=== PATIENT | female | born 1965 | race Caucasian/White ===

== ENCOUNTER 2020-09-17 20:36 | Inpatient (IN) | payer MEDICARE, MEDICAID ==
[~2020-09-17] VITALS: Ht 149.9 cm; Wt 37.4 kg
[2020-09-17 20:37] VITALS: BP 166/61
[2020-09-17] MEDS ORDERED: FUROSEMIDE 20 M20 MG PO (20:47)
[2020-09-17] MEDS ORDERED: NORCO5 PO (20:48)
[2020-09-17] MEDS ORDERED: PREDNISONE 5 MG5 MG PO (20:48)
[2020-09-17] MEDS ORDERED: CALCITRIOL0.5 MCG PO (20:48)
[2020-09-17] MEDS ORDERED: GLIMEPIRIDE4 MG PO (20:49)
[2020-09-17] MEDS ORDERED: SODIUM BICARBO650 M3 PO (20:49)
[2020-09-17] MEDS ORDERED: JANUVIA25 MG PO (20:50)
[2020-09-17] MEDS ORDERED: ROSUVASTATIN CA20 MG PO (20:53)
[2020-09-17] MEDS ORDERED: FAMOTIDINE 20 M20 MG PO (20:53)
[2020-09-17] MEDS ORDERED: REQUIP 1 MG TABL1 M1 PO (20:54)
[2020-09-17] MEDS ORDERED: DRIZALMA SPRINK30 MG PO (20:54)
[2020-09-17] MEDS ORDERED: FLEXERIL PO (20:54)
[2020-09-17] MEDS ORDERED: HYDROXYZINE HCL25 M2 PO (20:55)
[2020-09-17] MEDS ORDERED: HYDRALAZINE 2525 MG PO (20:55)
[2020-09-17] MEDS ORDERED: CARVEDILOL12.5 MG PO (20:56)
[2020-09-17] MEDS ORDERED: CATAPRES0.2 MG PO (20:56)
[2020-09-17 21:00] VITALS: BP 152/94
[2020-09-17 21:05] LABS: ABSOLUTE BASOPHILS 0.1 thou/uL (0.0-0.2); ABSOLUTE EOSINOPHILS 0.1 thou/uL (0.0-0.7); ABSOLUTE LYMPHOCYTES 0.6 thou/uL (0.8-5.3); ABSOLUTE MONOCYTES 0.5 thou/uL (0.0-1.2); ABSOLUTE NEUTROPHILS 5.5 thou/uL (1.6-8.1); BASOPHILS 0.8 %; EOSINOPHILS 1.3 %; HEMATOCRIT 22.1 % (37.0-47.0); HEMOGLOBIN 7.2 gm/dL (12.0-15.0); LYMPHOCYTES 8.8 %; MCH 29.2 pg (26.0-34.0); MCHC 32.5 g/dL (28.0-37.0); MCV 89.9 fL (80.0-100.0); MONOCYTES 7.1 %; MPV 9.5 fl. (7.2-11.1); NUCLEATED RBCS 0 /100WBC; PLATELET COUNT* 143 thou/uL (150-400); RBC 2.46 mil/uL (4.20-5.00); RDW-CV 16.2 % (10.5-14.5); WBC 6.7 thou/uL (4.0-11.0)
[2020-09-17 21:14] LABS: ANION GAP 10 mmol/L (7-16); BUN 31 mg/dL (7-18); CALCIUM 8.9 mg/dL (8.5-10.1); CHLORIDE 100 mmol/L (98-107); CO2 29 mmol/L (21-32); CREATININE 6.5 mg/dL (0.6-1.3); GLUCOSE 217 mg/dL (70-99); INR 0.9; POTASSIUM 3.3 mmol/L (3.5-5.1); PROTIME 10.1 Seconds (9.20-11.50); SODIUM 139 mmol/L (136-145)
[2020-09-17 21:24] LABS: ALBUMIN 3.1 g/dL (3.4-5.0); ALKALINE PHOSPHATASE 65 U/L (46-116); LIPASE 244 U/L (73-393); MAGNESIUM 2.2 mg/dL (1.8-2.4); SGOT 19 U/L (15-37); SGPT 18 U/L (30-65); TOTAL BILIRUBIN 0.5 mg/dL (<0.1-1.0); TOTAL PROTEIN 6.7 g/dL (6.4-8.2)
[2020-09-17 21:25] LABS: NT-PRO BRAIN NAT PEPTIDE > 35000 pg/mL (<300)
[2020-09-17 22:41] VITALS: BP 185/76
[2020-09-18] VITALS (8 sets, daily range): BP systolic 136–242; BP diastolic 67–163
--- NOTE | 2020-09-18 04:30 | NUR ---
PT CALLING OUT TO [facility] EVERY FEW MINUTES FOR PAIN MEDS, THE DR HAS BEEN PAGED AND WE HAVE NOT REC'D A CALL BACK YET. WENT TO BEDSIDE AND TRIED TO COMFORT PT BY HELPING HER SLOW HER BREATHING, REPOSITIONING HER AND TALKING TO HER IN SOFT SLOW MANNER TO RELAX HER. SHE IS RESTLESS AND ROCKING HER HEAD SIDE TO SIDE. WCTM
--- NOTE | 2020-09-18 04:56 | NUR ---
PT HAS BEEN ANXIOUS ALL NIGHT, SHE HAS CALLED OUT FREQUENTLY REQUESTING MORE PAIN MEDS. SHE HAD ATIVAN WHICH CALMED HER FOR A SHORT TIME, SHE THEN REPORTED PAIN IN LT CHEST 8/10 AND I CALLED THE PHYSICAIN TO OBTAIN PAIN MEDS AND ADMINISTERED HER MORPHINE PER ORDER. SHE THEN CALLED ME TO THE BEDSIDE A FEW MINUTES LATER ASKING FOR THE NAME OF THE PAIN MED. WHEN I TOLD HER IT WAS MORPHINE SHE GOT ANGRY INSISTING SHE DID NOT RECEIVE MORPHINE. I HAD THE BOTTLE FOR PURPOSE OF WASTING AND SHOWED HER THE BOTTLE. SHE WAS STILL ANGRY. 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
--- NOTE | 2020-09-18 06:21 | NUR ---
PT AO X4 FROM HOME WITH , SHE IS T// DIALYSIS PT MISSING YESTERDAY, SHE CAME TO HOSPITAL WITH SOA,ANXIETY. PT HAS BEEN UP ALL SHIFT REQUESTING PAIN MEDS FOR CHEST PAIN IN LT SIDE -11/24. PT HAD ATIVAN FOR ANXIETY AND THIS AM THIS RN GOT AN ORDER FOR PAIN. MORPHINE ADMINISTERED FOR PAIN HELPED SOME BUT PT STATES SHE KNOWS WHAT MORPHINE FEELS LIKE AND WHAT SHE GOT WAS NOT MORPHINE. SAT THIS AM WAS LOWER, 87-91 ON 3L. PT LUNGS ARE COURSE AND WHEEZY BUT COUGH IS NON PRODUCTIVE AT THIS TIME.
--- NOTE | 2020-09-18 09:57 | EKG ---
[place] [address] ELECTROCARDIOGRAM REPORT Name: JENNIFERHAILEY Room: [address] M.R.#: [id number] Admission: 09/17/20 Attend Phys: Ronak Ramirez Discharge: Date of : 69 Date of Service: 09/17/202037 Report #: [id number] THIS REPORT FOR: //name// [facility] ED Test Date: 2020-09-17 Test Time: 20:38:30 Pat Name: HAILEY RODRIGUEZ Department: Room: [facility] Gender: F Psychology Intern: : 1965 Requested By: Alicia Costa Order Number: [id number] MD: Terrell Hunt Measurements Intervals [place] Rate: 97 P: 27 DE: 158 QRS: 27 QRSD: 83 T: 193 QT: 412 QTc: 524 Interpretive Statements Sinus rhythm Probable left atrial enlargement Probable LVH with secondary repol abnrm Prolonged QT interval No previous ECG available for comparison Electronically Signed On 09-18-2020 9:57:22 CDT by Terrell Hunt [email or web address] <ELECTRONICALLY SIGNED> By: Terrell Hunt MD, [facility] 09/18/20 0957 37 37 Terrell Hunt MD, [facility] /EPI
--- NOTE | 2020-09-18 15:44 | NUR ---
cm spk with pt who stated she lives at home. she uses a cane. does not have home o2. she goes to outpatient dialysis on and sat, she stated she started "about a month ago." pt stated the dialysis facility is in [place], but she doesnt know the name. pt seemingly in distress and not focused on the conversation. cm spk w/pt rn, bernardo, to inform him that pt looked as if she was in distress. bernardo acknowledged cm. bernardo informed cm that pt spouse stated pt goes to dialysis in [place] but he does not know what facility, as the patient either drives herself or gets picked up. cm to f/u with pt at later date when presents with less anxiety.
--- NOTE | 2020-09-18 17:20 | 2DMMODE ---
[place] [address] 2 D/M-MODE ECHOCARDIOGRAM Name: HAILEY RODRIGUEZ Room: [address] IN .Sandeep.#: [id number] Admission: 09/18/20 Attend Phys: Ronak Ramirez Discharge: Date of : 69 Date of Service: 09/18/20 1720 Report #: [id number] THIS REPORT FOR: cc: Ernst Olson,Terrell Garcia MD [facility] ~ APPROVED REPORT Study performed: 09/18/2020 15:58:08 EXAM: Comprehensive 2D, Doppler, and color-flow Echocardiogram Patient Location: In-Patient Room #: 218 Status: routine BSA: 1.26 HR: 107 bpm BP: 191/127 mmHg Rhythm: NSR Other Information Study Quality: Good Indications Chest Pain 2D Dimensions IVSd: 9.41 (7-11mm) LVOT Diam: 17.89 (18-24mm) LVDd: 46.94 mm PWd: 11.40 (7-11mm) Ascending Ao: 36.17 (22-36mm) LVDs: 33.54 (25-40mm) Aortic Root: 26.33 mm Volumes Left Atrial Volume (Systole) LA ESV Index: 78.80 mL/m2 Aortic Valve AoV Peak Vitaly.: 2.12 m/s AO Peak Gr.: 17.95 mmHg LVOT Max P.57 mmHg AO Mean Gr.: 9.10 mmHg LVOT Mean P.47 mmHg LVOT Max V: 1.07 m/s AO V2 VTI: 28.49 cm LVOT Mean V: 0.73 m/s ARIE (VTI): 1.47 cm2 LVOT V1 VTI: 16.63 cm AI Evangeline: 7.04 m/s2 [place] [address] 2 D/M-MODE ECHOCARDIOGRAM Name: HAILEY RODRIGUEZ Room: [address] IN .R.#: [id number] Admission: 09/18/20 Attend Phys: Ronak Ramirez Discharge: Date of : 69 Date of Service: 09/18/20 1720 Report #: [id number] AI PHT: 220.98 ms Mitral Valve MV Mean Gr.: 7.15 mmHg E/A Ratio: 0.84 MV Decel. Time: 129.84 ms MV E Max Vitaly.: 1.45 m/s MV PHT: 37.65 ms MVA (PHT): 5.84 cm2 TDI E/Lateral E': 24.17 Lateral E' Vitaly.: 0.06 m/s Pulmonary Valve PV Peak Vitaly.: 1.30 m/s PV Peak Gr.: 6.71 mmHg Tricuspid Valve RAP Estimate: 5.00 mmHg TR Peak Gr.: 42.07 mmHg RVSP: 47.00 mmHg PA Pressure: 47.00 mmHg Left Ventricle Left ventricle is mildly dilated. There is global hypokinesis of the left ventricle. Mild concentric left ventricular hypertrophy. Left ventricular systolic function is severely decreased. LVEF is 25-30%. Grade I - abnormal relaxation pattern. Right Ventricle The right ventricle is normal size. The right ventricular systolic function is normal. Atria Left atrium is severely dilated. The right atrium size is normal. Aortic Valve Aortic valve is calcified. Moderate aortic regurgitation. Mild aortic stenosis. Mitral Valve Moderate mitral annular calcification. The mitral valve is normal in structure. Mild mitral regurgitation. No evidence of mitral valve stenosis. Tricuspid Valve The tricuspid valve is normal in structure[place] [address] 2 D/M-MODE ECHOCARDIOGRAM Name: HAILEY RODRIGUEZ Room: [address] IN [facility]#: [id number] Admission: 09/18/20 Attend Phys: Ronak Ramirez Discharge: Date of : 69 Date of Service: 09/18/20 1720 Report #: [id number] regurgitation. estimated pa pressure 50 mm Hg Pulmonic Valve The pulmonary valve is normal in structure. Mild pulmonic regurgitation. Great Vessels The aortic root is normal in size. IVC is normal in size and collapses >50% with inspiration. Pericardium There is no pericardial effusion. Moderate left pleural effusion. <Conclusion> Mild concentric left ventricular hypertrophy. LVEF is 25-30%. Left atrium is severely dilated. Mild aortic stenosis. Moderate aortic regurgitation. Mild mitral regurgitation. Mild tricuspid regurgitation. estimated pa pressure 50 mm Hg <ELECTRONICALLY SIGNED> By: Terrell Hunt MD, FACC 09/18/201719 19 19 Terrell Hunt MD, FACC /INF
--- NOTE | 2020-09-18 18:12 | NUR ---
Pt very SOA this am and very anxious. Dialysis pt, and missed scheduled treatment yesterday (e, , Sat). BP also very high: 200s-230s/120s-140s. Received order for lorazepam dose. Pt also started on BIPAP, which pt tolerated well. Dialysis treatment ordered and completed this afternoon. Also received 1 unit PRBCs during dialysis for Hgb 7.2. Total of 3.5 L removed. Pt taken off BIPAP and placed on 5L per NC. Pt noticeably calm and with normal appearing resps. BP remains elevated at 190/121. Also spiked a fever of 101 followoing dialysis. Orders received for increased frequency of clonidine (BID to TID), and BC X2. Pt's states pt has not been feeling well for about 1 month, and is concerned that "she may be on too many medications." Pt states she has home O2 because she wears oxygen to sleep. Will continue to monitor.
[2020-09-19] VITALS: BP 162/104
[2020-09-19 04:41] VITALS: BP 151/98
--- NOTE | 2020-09-19 04:58 | NUR ---
PT A&OX4, 4L O2, SR-ST WITH ST DEPRESSION AND PVC'S ON TELE MONITOR. IV SALINE LOCKED. FEBRILE 100.0-100.2, TYLENOL ADMINISTERED ODERED. PT HAS BEEN SLEEPING WELL. ASSESSMENTS AND HOURLY ROUNINDS COMPLETE, WILL CONTINUE TO MONITOR.
[2020-09-19 05:34] LABS: HEMATOCRIT 26.1 % (37.0-47.0); HEMOGLOBIN 8.7 gm/dL (12.0-15.0); MCH 29.5 pg (26.0-34.0); MCHC 33.2 g/dL (28.0-37.0); MCV 88.8 fL (80.0-100.0); MPV 9.2 fl. (7.2-11.1); RBC 2.94 mil/uL (4.20-5.00); RDW-CV 15.3 % (10.5-14.5)
[2020-09-19 05:38] LABS: CALCIUM 8.2 mg/dL (8.5-10.1); CREATININE 4.2 mg/dL (0.6-1.3); POTASSIUM 3.3 mmol/L (3.5-5.1)
[2020-09-19 08:00] VITALS: BP 99/36
[2020-09-19 13:51] VITALS: BP 145/82
--- NOTE | 2020-09-19 19:21 | NUR ---
PT. AOX4, VSS, PAIN AND ANXIETY UNDER CONTROL, HD TODAY, DID NOT TOLERATE WELL, CALL LIGHT AND PERSONAL BELONGINGS PLACED WITHIN REACH. SPOKE TO DAUGHTER BALDOMERO AND UPDATED ON PROGRESS AND TREATMENT. BP OBTAINED ACCURATELY BY MANUAL CUFF. PT. IN BED, RESTING WITH EVES CLOSED AT THIS TIME.
[2020-09-19 22:02] VITALS: BP 76/42
[2020-09-20] VITALS: BP 105/49
--- NOTE | 2020-09-20 00:54 | NUR ---
VERY DIFFICULT TO GET ACCURATE READING OF PATIENT'S BLOOD PRESSURE, MULTIPLE LOCATIONS ATTEMPTED BY MULTIPLE RN'S. UNABLE TO GET GOOD MANUAL BP READING. MACHINE BLOOD PRESSURE RESULT 79/28 AFTER MULTIPLE ATTEMPTS. YOU CALL SENT TO DR. YOUSSEF AT 2205, MESSAGE RECEIVED AT 2217, NO REPONSE BY 2224. DR. REDDING CONTACTED AT 2227; RESPONSE GIVEN THAT DUE TO PATIENT BEING AWAKE AND TALKING NO NEW ORDERS GIVEN. RETURN CALL RECIEVED FROM DR. YOUSSEF AT 2240. DR. YOUSSEF NOTIFIED OF CONTACT AND RESPONSE BY DR. REDDING. ALSO, REVIEWED PT'S BLOOD GLUCOSE LEVEL OF [address] YOUSSEF; NO NEW ORDERS GIVEN, INSTRUCTED TO ADMINISTER INSULIN ORDERED.
[2020-09-20 04:00] VITALS: BP 121/55
[2020-09-20 06:08] LABS: HEMATOCRIT 29.6 % (37.0-47.0); HEMOGLOBIN 9.9 gm/dL (12.0-15.0); MCH 29.6 pg (26.0-34.0); MCHC 33.4 g/dL (28.0-37.0); MCV 88.6 fL (80.0-100.0); MPV 9.1 fl. (7.2-11.1); RBC 3.35 mil/uL (4.20-5.00); RDW-CV 15.8 % (10.5-14.5); WBC 7.5 thou/uL (4.0-11.0)
[2020-09-20 06:12] LABS: CALCIUM 8.4 mg/dL (8.5-10.1); CREATININE 3.9 mg/dL (0.6-1.3); POTASSIUM 3.7 mmol/L (3.5-5.1)
[2020-09-20 08:00] VITALS: BP 136/94
[2020-09-20 13:05] VITALS: BP 136/76
[2020-09-20 17:13] VITALS: BP 136/76
--- NOTE | 2020-09-20 19:34 | NUR ---
PT. AOX4, VSS, CALL LIGHT AND PERSONAL BELONGINGS PLACED WITHIN REACH. PT. DCED, PACKET INSTRUCTED ON MEDS, HD SCHEDULE POST DC, ACITIVITY AND DIET. PT. LEFT BY WHEELCHAIR WITH FAMILY MEMBER, IN STABLE CONDITION AT TIME OF DC.
--- NOTE | 2020-09-21 13:47 | EKG ---
[place] [address] ELECTROCARDIOGRAM REPORT Name: RODRIGUEZHAILEY Room: [address] [place] M.R.#: [id number] Admission: 09/18/20 Attend Phys: Ronak Ramirez Discharge: 09/20/20 Date of : 69 Date of Service: 09/18/20 2348 Report #: [id number] THIS REPORT FOR: //name// [facility] Test Date: 2020-09-18 Test Time: 23:48:17 Pat Name: HAILEY RODRIGUEZ Department: Room: [address] Gender: F Assessment Manager: LAYLA : 1965 Requested By: Ronak Ramirez Order Number: [id number] Reading MD: Rafa Pretty Measurements Intervals [place] Rate: 87 P: 36 [place]: 148 QRS: 41 QRSD: 77 T: 259 QT: 426 QTc: 513 Interpretive Statements Sinus rhythm Probable left atrial enlargement Probable LVH with secondary repol abnrm Prolonged QT interval Compared to ECG 09/17/2020 20:38:30 No significant changes Electronically Signed On 09-21-2020 13:46:56 CDT by Rafa Pretty [email or web address] <ELECTRONICALLY SIGNED> By: Rafa Pretty MD, [facility] 09/21/20 1346 2348 2348 Rafa Pretty MD, [facility] /EPI
== END 2020-09-20 18:30 | disposition home or self-care (01) | DRG 291 ==
LOC: M.ERS 20:36 → M.TBA-ER 21:42 → M.2W 21:42
PROVIDERS: Emergency Medicine; Family Medicine; Internal Medicine; ADMIT Internal Medicine; ATTEND Internal Medicine
PROC: 5A09357 Assistance with Respiratory Ventilation, Less than 24 Consecutive Hours, Continuous Positive Airway Pressure (ICD-10-PCS; principal; 2020-09-18)
PROC: 30233N1 Transfusion of Nonautologous Red Blood Cells into Peripheral Vein, Percutaneous Approach (ICD-10-PCS; principal; 2020-09-18)
PROC: 5A1D70Z Performance of Urinary Filtration, Intermittent, Less than 6 Hours Per Day (ICD-10-PCS; principal; 2020-09-18)
PROC: 5A1D70Z Performance of Urinary Filtration, Intermittent, Less than 6 Hours Per Day (ICD-10-PCS; 2020-09-19)
DX: I13.2 Hypertensive heart and chronic kidney disease with heart failure and with stage 5 chronic kidney disease, or end stage renal disease (principal); I50.23 Acute on chronic systolic (congestive) heart failure; N18.6 End stage renal disease; Z94.0 Kidney transplant status; D84.89 Other immunodeficiencies; D64.9 Anemia, unspecified; D69.6 Thrombocytopenia, unspecified; J43.9 Emphysema, unspecified; F41.9 Anxiety disorder, unspecified; E87.6 Hypokalemia; E11.22 Type 2 diabetes mellitus with diabetic chronic kidney disease; I25.10 Atherosclerotic heart disease of native coronary artery without angina pectoris; I42.9 Cardiomyopathy, unspecified; E78.5 Hyperlipidemia, unspecified; Z20.822 Contact with and (suspected) exposure to COVID-19; Z95.5 Presence of coronary angioplasty implant and graft; Z79.84 Long term (current) use of oral hypoglycemic drugs; Z79.899 Other long term (current) drug therapy; Z88.8 Allergy status to other drugs, medicaments and biological substances; Z88.0 Allergy status to penicillin; Z99.2 Dependence on renal dialysis; Z95.1 Presence of aortocoronary bypass graft; Z98.891 History of uterine scar from previous surgery